=== PATIENT | female | born 2000 | race African-American/Black ===

== ENCOUNTER 2025-02-16 10:14 | Emergency (ER) | payer MEDICAID ==
[~2025-02-16] VITALS: Ht 170.2 cm; Wt 57.0 kg
[2025-02-16 10:21] VITALS: O2SAT 94
[2025-02-16 10:31] VITALS: TEMP 36.7; O2SAT 100
[2025-02-16] MEDS ORDERED: METH-653 MT (11:45)
[2025-02-16 12:00] VITALS: BP 111/69; PULSE 100; RESP 16
[2025-02-16] MEDS: IBUPROFEN 600MG TABLET PO ONE (12:00)
== END 2025-02-16 12:23 | disposition home or self-care (01) ==
LOC: ER 10:14
DX: M54.2 Cervicalgia (principal); Z98.890 Other specified postprocedural states
CPT/HCPCS: 99283

== ENCOUNTER 2025-02-22 18:34 | Emergency (ER) | payer MEDICAID ==
[~2025-02-22] VITALS: Ht 177.8 cm; Wt 48.0 kg
[~2025-02-22 18:34] MED LIST: METH-653 MT
[2025-02-22 18:40] VITALS: O2SAT 98
[2025-02-22 18:50] VITALS: TEMP 36.6
[2025-02-22 19:45] LABS: BASOPHILS % 0.6 % (0.0-2.0); EOSINOPHILS % 0.8 % (0.0-5.0); HEMATOCRIT. 39.0 % (36.0-48.0); HEMOGLOBIN. 12.7 g/dL (12.0-16.0); LYMPHOCYTES % 41.0 % (20.0-50.0); MEAN PLATELET VOLUME 9.3 fl (7.4-10.4); MONOCYTES % 7.0 % (2.0-8.0); NEUTROPHILS % 50.6 % (40.0-76.0); PLATELET 254 x1000/uL (130-400); RED BLOOD CELL COUNT 4.47 mill/uL (4.2-5.4); RED CELL DISTRIBUTION WIDTH 14.7 % (11.6-14.6)
[2025-02-22] MEDS: SODIUM CHLORIDE 0.9% 1,000 ML IV ONE (19:48)
[2025-02-22] MEDS: LORAZEPAM 2MG/ML UD SYRINGE IV NR (19:48)
[2025-02-22 19:55] LABS: CREATININE 1.0 mg/dL (0.6-1.0); UREA NITROGEN BLOOD 10 mg/dL (9-23)
[2025-02-22 19:57] LABS: ASPARTATE AMINOTRANSFERASE 16 IU/L (<34); BILIRUBIN DIRECT 0.2 mg/dL (<=3.0); BILIRUBIN TOTAL 0.6 mg/dL (0.1-1.0); PROTEIN TOTAL 7.2 g/dL (6.0-8.3)
[2025-02-22 20:02] LABS: HCG SCREEN NEGATIVE
[2025-02-22 20:26] LABS: TROPONIN I HIGH SENSITIVITY < 4 ng/L (3.0-34)
[2025-02-22 23:13] VITALS: BP 98/54; PULSE 82; RESP 17; O2SAT 99
[2025-02-22 23:29] LABS: TROPONIN I HIGH SENSITIVITY 9 ng/L (3.0-34)
[2025-02-23] MEDS: POTASSIUM CHLORIDE 20MEQ TABLET SR PO ONE (00:15)
== END 2025-02-23 00:10 | disposition home or self-care (01) ==
LOC: ER 18:34
DX: F12.90 Cannabis use, unspecified, uncomplicated (principal); R00.0 Tachycardia, unspecified; R53.1 Weakness; R25.1 Tremor, unspecified
CPT/HCPCS: 80076; 80048; 80320; 84703; 85025; 84484; 36415; 71045; 93005; 96361; 96374; 99285; J2060; J7030; G0480